=== PATIENT | female | born 1980 | race Hispanic/Latino ===

== ENCOUNTER 2021-10-06 05:42 | Observation (INO) | payer OTHER ==
[2021-10-05 12:05] LABS: BASOPHILS % (AUTO) 0.8 % (0.0-5.0); EOSINOPHILS % (AUTO) 2.6 % (0.0-8.0); HEMATOCRIT 40.5 % (36-48); LYMPHOCYTES % (AUTO) 30.5 % (21.0-51.0); MEAN CORPUSCULAR HEMOGLOBIN 29.8 pg (27.0-33.0); MEAN CORPUSCULAR HGB CONC 33.3 g/dL (32.0-36.0); MEAN CORPUSCULAR VOLUME 89.4 fL (79-99); MONOCYTES % (AUTO) 5.9 % (3.0-13.0); NEUTROPHILS % (AUTO) 59.8 % (40.0-77.0); PLATELET COUNT (AUTO) 285 K/uL (130-400); RED BLOOD CELL COUNT(AUTO) 4.53 MIL/uL (4.00-5.50); RED CELL DISTRIBUTION WIDTH 12.5 % (11.0-15.5); WHITE BLOOD COUNT (AUTO) 7.2 K/uL (4.8-10.8)
[2021-10-05 12:43] VITALS: BP 129/80
[2021-10-06] VITALS (24 sets, daily range): BP systolic 107–141; BP diastolic 54–86
[~2021-10-06] VITALS: Ht 162.6 cm; Wt 90.7 kg
[2021-10-06] MEDS ORDERED: CEFAZOLIN SODIUM 1 GM VIAL ONE (05:59)
[2021-10-06] MEDS ORDERED: LACTATED RINGERS 1000ML 1,000 ML IV ONE (05:59)
[2021-10-06] MEDS ORDERED: PROPOFOL 10 MG/ML 20ML VIAL IV ONE (06:44)
[2021-10-06] MEDS ORDERED: LIDOCAINE PF 100MG/5ML (2%) SYRINGE 5ML ONE (06:44)
[2021-10-06] MEDS ORDERED: DEXAMETHASONE SOD PHOSPHATE 10MG/ML 1ML VIAL ONE (06:44)
[2021-10-06] MEDS ORDERED: ONDANSETRON 4MG INJ ONE ×2 (06:44→11:27)
[2021-10-06] MEDS ORDERED: GLYCOPYRROLATE 1 MG/5 ML SYRINGE ONE (06:44)
[2021-10-06] MEDS ORDERED: NEOSTIGMINE 5MG/5ML SYR IV ONE (06:45)
[2021-10-06] MEDS ORDERED: MIDAZOLAM HCL 1 MG/ML 2ML VIAL ONE (06:45)
[2021-10-06] MEDS ORDERED: ROCURONIUM 10MG/1ML SYR 10 MG/ML ML ONE (06:45)
[2021-10-06] MEDS ORDERED: FENTANYL CITRATE PF 50 MCG/1 ML 5ML AMP IV ONE (06:45)
[2021-10-06] MEDS ORDERED: CEFAZOLIN SODIUM 2 GM VIAL IV ONE (08:05)
[2021-10-06] MEDS ORDERED: MEPERIDINE-PF 25 MG/ML SYG ONE ×2 (11:10→11:24)
[2021-10-06] MEDS ORDERED: ONDANSETRON 4MG INJ IVP PRN (12:30)
[2021-10-06] MEDS ORDERED: ACETAMINOPHEN WITH CODEINE 1 TAB TAB PO PRN (12:30)
[2021-10-06] MEDS ORDERED: PROMETHAZINE HCL 25 MG/ML 1ML AMPULE IM PRN (12:30)
[2021-10-06] MEDS ORDERED: BISACODYL 10 MG SUPP.RECT RC PRN (12:30)
[2021-10-06] MEDS ORDERED: IBUPROFEN 600 MG TABLET PO PRN (12:30)
[2021-10-06] MEDS ORDERED: DOCUSATE SODIUM 100 MG CAP PO PRN (12:30)
[2021-10-06] MEDS ORDERED: SIMETHICONE 80 MG TAB.CHEW PO PRN (12:30)
[2021-10-06] MEDS: DEXTROSE 5 %-0.45 % NACL 1,000 ML IV PRN ×2 (12:54→22:16)
[2021-10-06] MEDS: MEPERIDINE-PF 75 MG/ML SYG IM PRN ×2 (13:11→17:10)
[2021-10-06] MEDS: PROMETHAZINE HCL 25 MG/ML 1ML AMPULE IM PRN ×2 (13:11→17:09)
[2021-10-07] MEDS: PROMETHAZINE HCL 25 MG/ML 1ML AMPULE IM PRN (00:06)
[2021-10-07] MEDS: MEPERIDINE-PF 75 MG/ML SYG IM PRN (00:07)
[2021-10-07 02:34] VITALS: BP 109/67
[2021-10-07 05:32] LABS: HEMATOCRIT 33.5 % (36-48); MEAN CORPUSCULAR HEMOGLOBIN 29.8 pg (27.0-33.0); MEAN CORPUSCULAR HGB CONC 33.4 g/dL (32.0-36.0); MEAN CORPUSCULAR VOLUME 89.1 fL (79-99); RED BLOOD CELL COUNT(AUTO) 3.76 MIL/uL (4.00-5.50); WHITE BLOOD COUNT (AUTO) 12.3 K/uL (4.8-10.8)
[2021-10-07] MEDS ORDERED: HYDROCODONE/ACETAMINOPHEN 5/325 MG TAB PO PRN (06:00)
[2021-10-07] MEDS ORDERED: IBUPROFEN 800 MG TAB PO PRN (06:00)
[2021-10-07] MEDS ORDERED: ACETAMINOPHEN WITH CODEINE 1 TAB TAB PO PRN (06:00)
[2021-10-07] MEDS: DEXTROSE 5 %-0.45 % NACL 1,000 ML IV PRN (06:12)
[2021-10-07 07:28] VITALS: BP 104/76
[2021-10-07] MEDS ORDERED: ACET1TAB25 PO (10:18)
== END 2021-10-07 11:40 | disposition home or self-care (01) ==
LOC: DAH 05:42 → WSH 05:43
PROVIDERS: ADMIT Obstetrics & Gynecology; ATTEND Obstetrics & Gynecology
DX: N92.1 Excessive and frequent menstruation with irregular cycle (principal); Z20.822 Contact with and (suspected) exposure to COVID-19; R10.2 Pelvic and perineal pain; N39.3 Stress incontinence (female) (male); R68.89 Other general symptoms and signs; N94.10 Unspecified dyspareunia; D25.9 Leiomyoma of uterus, unspecified; N81.5 Vaginal enterocele; N81.6 Rectocele; Z98.51 Tubal ligation status; Z79.899 Other long term (current) drug therapy; Z98.890 Other specified postprocedural states
CPT/HCPCS: 36415 ×2; 57268; 57288; 58552; 85025; 85027; 86850; 86900; 86901; 87635; 96372 ×2; 96374; A4215 ×2; A4221; A4222; A4223; A4344; A4510; A4649 ×3; A4663; A6260; C1769 ×2; C1771; C9803; G0378 ×13; J0690 ×2; J1100; J2001; J2175 ×5; J2250; J2405 ×3; J2550 ×3; J2704; J2710; J3010; J3490; J7030; J7120; 96361